=== PATIENT | female | born 1995 | race American Indian/Alaskan Native ===

== ENCOUNTER 2017-06-26 18:36 | Emergency (ER) | payer SELFPAY ==
--- NOTE | 2017-06-26 19:58 | XRay Report ---
FINAL REPORT EXAM: XR SHOULDER 2+V LT HISTORY: left shoulder pain COMPARISON: None available. FINDINGS: Three views of the left shoulder obtained. There is a small bony fragment the superior lateral margin the humeral head concerning for avulsive injury. This measures approximately 9 x 3 millimeters. AC and glenohumeral joint spaces are preserved. No dislocation. IMPRESSION: Small bony fragment at the lateral and superior margin the humeral head concerning for avulsive injury.
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
[2017-06-27 01:18] VITALS: BP 146/96
== END 2017-06-27 01:18 | disposition home or self-care (01) ==
LOC: ED 18:36
DX: M25.512 Pain in left shoulder (principal); F12.10 Cannabis abuse, uncomplicated